=== PATIENT | male | born 1960 | race Two or more races ===

== ENCOUNTER 2020-09-25 12:06 | Emergency (ER) | payer MEDICAID, OTHER ==
[~2020-09-25] VITALS: Ht 160 cm; Wt 53.1 kg
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
[2020-09-25] MEDS ORDERED: HYDROCODONE/APAP 5/325MG TABLET ONE (12:27)
[2020-09-25] MEDS ORDERED: TDAP [DIPH/PERTUSSIS/TET] 0.5 ML VIAL IM ONE ×2 (12:30→12:58)
[2020-09-25] MEDS ORDERED: HYDROCODONE/APAP 5/325MG TABLET PO ONE (12:30)
--- NOTE | 2020-09-25 12:36 | NUR ---
MEDICATED FOR PAIN PER ERMD ORDER, PT VITOR WELL. PT TO CT VIA RAMON.
--- NOTE | 2020-09-25 13:55 | NUR ---
Patient discharged to home in stable condition. Written and verbal after care instructions given. Patient verbalizes understanding of instruction.
[2020-09-25 14:18] VITALS: BP 124/84
[2020-09-25] MEDS ORDERED: METH40TA2 PO (17:37)
== END 2020-09-25 14:19 | disposition home or self-care (01) ==
LOC: ER 12:07
DX: S00.83XA Contusion of other part of head, initial encounter (principal); R51.9 Headache, unspecified; W01.198A Fall on same level from slipping, tripping and stumbling with subsequent striking against other object, initial encounter; Y93.89 Activity, other specified; Y92.89 Other specified places as the place of occurrence of the external cause; Y99.8 Other external cause status
CPT/HCPCS: 70450-TC; 70486-TC; 90715

== ENCOUNTER 2020-09-25 15:38 | Emergency (ER) | payer MEDICAID, OTHER ==
[~2020-09-25] VITALS: Ht 160 cm; Wt 53.1 kg
--- NOTE | 2020-09-25 15:50 | NUR ---
PT BIBRA ONCE AGAIN, PT WAS JUST DISCHARGED HOME BUT APPARENTLY HE FELL OUTSIDE AGAIN AND WAS TOO WEAK TO KEEP WALKING. MD EVALUATED PT ALREADY. VS CHECKED. STABLE. Addendum: 09/25/20 at 1759 by DCABANOS CORRECTION: PT BIBRA ONCE AGAIN, PT WAS JUST DISCHARGED HOME BUT APPARENTLY HE GOT DIZZY AND WAS TOO WEAK TO KEEP WALKING. MD EVALUATED PT ALREADY. VS CHECKED. STABLE. Addendum: 09/25/20 at 1801 by DCABANOS PT DID NOT FALL. PT WAS JUST DIZZY, PER RA REPORT.
--- NOTE | 2020-09-25 16:00 | NUR ---
IV access initiated and blood drawned and sent to lab. Connected to the monitor and pulse ox. Verbally responsive and able to make needs known. Kept comfortable, will continue to monitor accordingly.
[2020-09-25] MEDS ORDERED: LORAZEPAM INJ 2 MG/ML VIAL ONE (16:19)
[2020-09-25] MEDS ORDERED: LORAZEPAM INJ 2 MG/ML VIAL IV ONE (16:30)
[2020-09-25] MEDS ORDERED: IV NS 0.9% 1,000 ML BAG IV ONE (16:30)
[2020-09-25 16:32] LABS: BASOPHILS # (AUTO) 0.1 /CMM (0.0-0.2); BASOPHILS % (AUTO) 0.4 % (0.0-2.0); HEMATOCRIT 43 % (39-51); HEMOGLOBIN 14.2 g/dL (13.5-17.5); LYMPHOCYTES # (AUTO) 2.8 /CMM (0.8-4.8); MEAN CORPUSCULAR HGB CONC 33 g/dl (31.0-36.0); MEAN CORPUSCULAR VOLUME 93 fL (80-96); MONOCYTES # (AUTO) 1.9 /CMM (0.1-1.30); MONOCYTES % (AUTO) 10.8 % (2.0-12.0); NEUTROPHILS # (AUTO) 12.7 /CMM (1.8-8.9); NEUTROPHILS % (AUTO) 72.8 % (43.0-81.0); PLATELET COUNT (AUTO) 267 /CMM (150-450); RED BLOOD CELL COUNT(AUTO) 4.63 MIL/uL (4.5-6.0); WHITE BLOOD COUNT (AUTO) 17.5 K/uL (4.3-11.0)
[2020-09-25 16:45] LABS: CALCIUM, SERUM 8.7 mg/dL (8.5-10.1); POTASSIUM 3.3 mmol/L (3.5-5.1)
[2020-09-25 16:51] LABS: BILIRUBIN,DIRECT 0.3 mg/dL (0.0-0.2); BILIRUBIN,TOTAL 1.1 mg/dL (0.2-1.0); TOTAL PROTEIN, SERUM 7.7 g/dL (6.4-8.2)
--- NOTE | 2020-09-25 17:15 | NUR ---
URINE COLLECTED, COVID SWAB DONE. SENT TO LAB.
[2020-09-25] MEDS ORDERED: METH40TA2 PO (17:37)
--- NOTE | 2020-09-25 17:39 | NUR ---
MOVE SHEET SUBMITTED AND CALLED FOR MS BED.
[2020-09-25 17:43] LABS: BILIRUBIN,URINE SMALL (NEGATIVE); BLOOD, URINE Small Ery/uL (NEGATIVE); COLOR,URINE DARK YELLOW (YELLOW); LEUKOCYTE ESTERASE ,URINE Negative (NEGATIVE); NITRITE, URINE Negative (NEGATIVE); PH,URINE 5.5 (5.0-8.0); PROTEIN,URINE Negative (NEGATIVE); UGLUCOSE Negative (NEGATIVE)
[2020-09-25 17:56] LABS: BACTERIA,URINE Few /HPF (None Seen); SQUAMOUS EPITHELIAL CELL,UR Few /HPF (None Seen); WBC,URINE 0-2 /HPF (0-3)
--- NOTE | 2020-09-25 18:54 | NUR ---
SPOKE TO [facility]. PT WILL BE TRANSFERED. AWAITING MD TO CALL DR ROD CALL BACK.
--- NOTE | 2020-09-25 19:05 | NUR ---
TOOK OVER PT CARE. PT ON BED ON BACKUP ADMINISTRATOR AND PULSE OX. NO DISTRESS NOTED. VSS. LAC ON L EYE BROW AND L EYE. PT AAOX4. AWARE OF ADMISSION.
--- NOTE | 2020-09-25 22:30 | NUR ---
Patient is resting comfortably in bed with eyes closed. Easily aroused. VSS.
[2020-09-25 22:31] VITALS: BP 135/67
--- NOTE | 2020-09-25 22:42 | NUR ---
PT ACCEPTED TO [facility] ROOM 101-2. # FOR REPORT [phone]. AUTH# FOR TRANSPORT [id number]
--- NOTE | 2020-09-25 22:48 | NUR ---
[facility] ETA [id number]
--- NOTE | 2020-09-25 23:14 | NUR ---
REPORT GIVEN TO JAMES GRANDE FOR JOSE
--- NOTE | 2020-09-26 00:11 | NUR ---
REPORT GIVEN TO NORMA RICE. PT TRANSFERED.
== END 2020-09-26 00:12 | disposition short-term general hospital (02) ==
LOC: ER 15:47
DX: R42 Dizziness and giddiness (principal); R79.89 Other specified abnormal findings of blood chemistry; D72.829 Elevated white blood cell count, unspecified; Z20.828 Contact with and (suspected) exposure to other viral communicable diseases; R53.1 Weakness; F11.10 Opioid abuse, uncomplicated; Z59.0 Homelessness; R94.31 Abnormal electrocardiogram [ECG] [EKG]
CPT/HCPCS: 36415; 71045; 80048; 80076; 80299; 80307 ×2; 80320; 81001; 84484; 85025; 85730; 87081; 87426; 93005; 96361; 96374; 99285; C9803; J2060; J7030; G0480

== ENCOUNTER 2021-09-29 11:56 | Emergency (ER) | payer OTHER ==
[~2021-09-29] VITALS: Ht 165.1 cm; Wt 66.2 kg
[~2021-09-29 11:56] MED LIST: METH40TA2 PO
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
--- NOTE | 2021-09-29 15:07 | NUR ---
LAB AT BEDSIDE
--- NOTE | 2021-09-29 15:07 | NUR ---
UNABLE TO PROVIDE URINE AT THIS TIME
--- NOTE | 2021-09-29 15:15 | NUR ---
TERRITORY DEVELOPMENT MANAGER AT BEDSIDE
[2021-09-29 15:19] LABS: BASOPHILS # (AUTO) 0.1 K/uL (0.0-0.2); BASOPHILS % (AUTO) 0.6 % (0.0-2.0); EOSINOPHILS % (AUTO) 2.8 % (0.0-6.0); HEMATOCRIT 37 % (39-51); HEMOGLOBIN 11.9 g/dL (13.5-17.5); LYMPHOCYTES # (AUTO) 4.1 K/uL (0.8-4.8); LYMPHOCYTES % (AUTO) 38.5 % (20.0-44.0); MEAN CORPUSCULAR HGB CONC 32 g/dl (31.0-36.0); MEAN CORPUSCULAR VOLUME 91 fL (80-96); MONOCYTES % (AUTO) 9.6 % (2.0-12.0); NEUTROPHILS # (AUTO) 5.2 K/uL (1.8-8.9); NEUTROPHILS % (AUTO) 48.5 % (43.0-81.0); PLATELET COUNT (AUTO) 154 K/uL (150-450); RED BLOOD CELL COUNT(AUTO) 4.06 MIL/uL (4.5-6.0); WHITE BLOOD COUNT (AUTO) 10.8 K/uL (4.3-11.0)
[2021-09-29 15:28] LABS: CALCIUM, SERUM 8.6 mg/dL (8.5-10.1); CARBON DIOXIDE 29 mmol/L (21-32); CHLORIDE 106 mmol/L (98-107); GLUCOSE 79 mg/dL (74-106); SODIUM SERUM 140 mmol/L (136-145); UREA NITROGEN, BLOOD 23 mg/dL (7-18)
[2021-09-29 15:34] LABS: ALANINE AMINOTRANSFERASE 19 U/L (12-78); ALBUMIN 3.2 g/dL (3.4-5.0); ALCOHOL, BLOOD < 3 mg/dL (0-0); ALKALINE PHOSPHATASE 90 U/L (46-116); ASPARTATE AMINOTRANSFERASE 18 U/L (15-37); BILIRUBIN,TOTAL 0.3 mg/dL (0.2-1.0); TOTAL PROTEIN, SERUM 6.7 g/dL (6.4-8.2)
--- NOTE | 2021-09-29 16:56 | NUR ---
URINE COLLECTED AND SENT TO LAB
[2021-09-29 18:03] LABS: BILIRUBIN,URINE NEGATIVE (NEGATIVE); COLOR,URINE YELLOW (YELLOW); LEUKOCYTE ESTERASE ,URINE NEGATIVE (NEGATIVE); NITRITE, URINE NEGATIVE (NEGATIVE); PH,URINE 5.5 (5.0-8.0); PROTEIN,URINE NEGATIVE (NEGATIVE); UGLUCOSE NEGATIVE (NEGATIVE); UROBILINOGEN,URINE 0.2 EU/dL (0.2)
[2021-09-29] MEDS ORDERED: IV NS 0.9% 500 ML IV ONE (19:30)
--- NOTE | 2021-09-29 21:38 | NUR ---
PT A, OX4, AMBULATORY W/ STEADY GAITS. DENIED SI/HI, PO INTAKE TOLERATED WELL. STABLE FOR D/C PER MD.
--- NOTE | 2021-09-29 21:59 | NUR ---
Patient discharged to home in stable condition. Written and verbal after care instructions given. Patient verbalizes understanding of instruction.
[2021-09-29 22:03] VITALS: BP 138/70
== END 2021-09-29 22:03 | disposition home or self-care (01) ==
LOC: ER 15:27
DX: R53.1 Weakness (principal); R42 Dizziness and giddiness; I25.10 Atherosclerotic heart disease of native coronary artery without angina pectoris; Z79.899 Other long term (current) drug therapy
CPT/HCPCS: 36415; 71045; 80053; 80307; 80320; 81003; 84484; 85025; 93005; 99285; A6403; J7030; J7040; G0480